=== PATIENT | female | born 1965 | race Asian ===

== ENCOUNTER 2020-07-05 14:23 | Emergency (ER) | payer MEDICAID ==
[~2020-07-05] VITALS: Ht 162.6 cm; Wt 79.5 kg
[2020-07-05] MEDS ORDERED: ASPI-728 PO (14:27)
[2020-07-05] MEDS ORDERED: ASCO100T12 PO (14:28)
[2020-07-05] MEDS ORDERED: BACITRACIN 0.9 GM PACKET OINTMENT TP ONE (16:00)
[2020-07-05] MEDS ORDERED: POVIDONE-IODINE 10% 15 ML SOLUTION UD TP ONE (16:00)
[2020-07-05] MEDS ORDERED: IBUPROFEN 800 MG TABLET PO ONE (16:00)
[2020-07-05] MEDS ORDERED: PERTUSS(ACELL),DIPH,TET VAC/PF 0.5 ML VIAL IM ONE (16:00)
[2020-07-05 17:34] VITALS: BP 190/100
== END 2020-07-05 18:15 | disposition home or self-care (01) ==
LOC: EMS 14:32
DX: S52.501A Unspecified fracture of the lower end of right radius, initial encounter for closed fracture (principal); S01.81XA Laceration without foreign body of other part of head, initial encounter; I10 Essential (primary) hypertension; W19.XXXA Unspecified fall, initial encounter; Y93.89 Activity, other specified; Y92.89 Other specified places as the place of occurrence of the external cause; Y99.8 Other external cause status
CPT/HCPCS: 90471; 90715

== ENCOUNTER 2023-09-16 16:10 | Emergency (ER) | payer MEDICAID ==
[~2023-09-16] VITALS: Ht 160 cm; Wt 70.5 kg
[~2023-09-16 16:10] MED LIST: ASCO100T12 PO; ASPI-1450 PO
[2023-09-16] MEDS ORDERED: AMLO5TAB66 PO (16:26)
[2023-09-16 16:54] LABS: BASOPHILS % (AUTO) 0.5 % (0.0-2.0); EOSINOPHILS % (AUTO) 1.7 % (1.0-6.0); HEMATOCRIT 41.7 % (36-46); HEMOGLOBIN 14.2 g/dL (12.0-16.0); LYMPHOCYTES # (AUTO) 1.7 K/uL (1.0-4.8); LYMPHOCYTES % (AUTO) 18.1 % (22.0-44.0); MEAN CORPUSCULAR HEMOGLOBIN 29.8 pg (26.0-34.0); MEAN CORPUSCULAR HGB CONC 33.9 G/dL (31.0-37.0); MEAN CORPUSCULAR VOLUME 88 fL (80-100); MONOCYTES # (AUTO) 0.6 K/uL (0.1-1.0); MONOCYTES % (AUTO) 6.3 % (2.0-9.0); NEUTROPHILS % (AUTO) 73.4 % (40.0-70.0); PLATELET COUNT (AUTO) 225 K/uL (150-450); RED BLOOD CELL COUNT(AUTO) 4.75 MIL/uL (4.00-5.20); RED CELL DISTRIBUTION WIDTH 13.7 % (11.5-14.5); WHITE BLOOD COUNT (AUTO) 9.6 K/uL (4.5-11.0)
[2023-09-16 17:00] LABS: APPEARANCE,URINE HAZY (CLEAR); BILIRUBIN,URINE NEGATIVE (NEGATIVE); COLOR,URINE COLORLESS (YELLOW); GLUCOSE, URINE (UA) 70-100 mg/dL (NEGATIVE); KETONES,URINE NEGATIVE (NEGATIVE); LEUKOCYTE ESTERASE ,URINE NEGATIVE (NEGATIVE); NITRATE,URINE NEGATIVE (NEGATIVE); OCCULT BLOOD,URINE NEGATIVE (NEGATIVE); PROTEIN,URINE TRACE mg/dL (NEGATIVE); SPECIFIC GRAVITIY, URINE 1.012 (1.003-1.030); UROBILINOGEN,URINE <=1.0 mg/dL (<=1.0)
[2023-09-16 17:08] LABS: ANION GAP 11 mmol/L (8-16); CALCIUM, TOTAL 10.2 mg/dL (8.8-10.5); CARBON DIOXIDE 27 mmol/L (22-29); CHLORIDE 100 mmol/L (98-107); CREATININE 0.94 mg/dL (0.60-1.30); GLOMERULAR FILTR. RATE CALC > 60 mL/min (>60); GLUCOSE,RANDOM 209 mg/dL (70-110); POTASSIUM 3.6 mmol/L (3.5-5.1); SODIUM SERUM 138 mmol/L (136-145); UREA NITROGEN, BLOOD 20 mg/dL (7-18)
[2023-09-16 17:14] LABS: ALANINE AMINOTRANSFERASE 111 U/L (12-78); ALBUMIN 4.3 g/dL (3.4-5.0); ALKALINE PHOSPHATASE 165 U/L (46-116); ASPARTATE AMINOTRANSFERASE 59 U/L (15-37); BILIRUBIN,TOTAL 0.7 mg/dL (0.1-1.0); LIPASE 51 U/L (16-77); TOTAL PROTEIN, SERUM 7.9 g/dL (6.4-8.2)
[2023-09-16 17:19] LABS: SQUAMOUS EPITHELIAL CELL,UR Moderate /LPF (None Seen)
[2023-09-16 17:20] LABS: BACTERIA,URINE Moderate /HPF (None Seen); RBC,URINE None Seen /HPF (0-2)
[2023-09-16 17:35] LABS: TROPONIN I-HIGH SENSITIVITY 7 ng/L (<51)
[2023-09-16] MEDS: SODIUM CHLORIDE 0.9% 1,000 ML IV ONE (18:41)
[2023-09-16] MEDS: KETOROLAC TROMETHAMINE 30 MG/ML VIAL IVP ONE (18:41)
[2023-09-16 19:46] VITALS: BP 192/90; PULSE 104; RESP 18; TEMP 98.5
[2023-09-16] MEDS ORDERED: HYDR-4723 PO (19:47)
[2023-09-16] MEDS ORDERED: CEPH-558 PO (19:47)
[2023-09-16] MEDS: TAMSULOSIN HCL 0.4 MG CAPSULE PO ONE (19:54)
[2023-09-16] MEDS: CEPHALEXIN MONOHYDRATE 500 MG CAPSULE PO ONE (19:54)
== END 2023-09-16 19:55 | disposition home or self-care (01) ==
LOC: EMS 16:11
DX: N20.1 Calculus of ureter (principal); K76.89 Other specified diseases of liver; Z90.722 Acquired absence of ovaries, bilateral
CPT/HCPCS: 99285; 74176; 96374; 76705; 96361; 80053; 81001; 83690; 84484; 85025; 36415; 87086; 87186; 93005; J1885; J7030; 81003